=== PATIENT | female | born 1960 | race Caucasian/White ===

== ENCOUNTER 2017-11-06 07:21 | Outpatient (CLI) | payer OTHER ==
[2017-11-06] MEDS ORDERED: Iopamidol 370 76% 100 ML VIAL ONE (09:00)
--- NOTE | 2017-11-06 09:09 | CT ---
CT ABDOMEN AND PELVIS WITH CONTRAST: HISTORY: C18.6, malignant neoplasm of colon. Followup colon cancer. COMPARISON: CT abdomen and pelvis 04/08/17. FINDINGS: Lung bases are clear. No pericardial effusion. There is a small ventral hernia containing small bowel, the alimentary limb of the bypass. No dilated loops of large or small bowel. No adenopathy. The aortoiliac contour is normal. The liver, gallbladder, spleen, and pancreas are all unremarkable. No intrahepatic or extrahepatic biliary dilatation. Prior partial hepatectomy. The skeleton is unremarkable. IMPRESSION: No evidence for disease recurrence or metastatic disease. POS: [facility]
== END 2017-11-06 07:22 | disposition home or self-care (01) ==
LOC: SCSCT 07:21
PROVIDERS: ATTEND Internal Medicine Hematology & Oncology
DX: C18.6 Malignant neoplasm of descending colon (principal)
CPT/HCPCS: 74177

== ENCOUNTER 2018-06-11 07:16 | Outpatient (CLI) | payer OTHER ==
--- NOTE | 2018-06-11 10:09 | CT ---
CT ABDOMEN AND PELVIS WITH IV CONTRAST: Date: 06-11-18 History: Colon cancer. Comparison: 11-06-17 FINDINGS: Calcified granuloma is again seen at the left lung base. This is unchanged compared to a study in 201 6. No additional pulmonary nodule or mass is seen. There is minimal dependent bibasilar atelectasis. There are post-surgical changes related to resection of the lateral segment left hepatic lobe with ev idence of cholecystectomy. There is a linear area of enhancement again seen within the lateral aspect of the right hepatic lobe which is stable when compared to multiple prior studies, including studies dating back to 2016 and 2015 and may be related to vascular malformation in this region. No new hepa tic lesions are seen. Post-surgical changes of the stomach are present likely related to gastric bypass procedure. There is midline ventral abdominal hernia in the upper abdomen containing a loop of small bowel witho ut evidence of a bowel obstruction. However, this is a stable finding. The spleen, pancreas, bilateral adrenal glands, kidneys, and decompressed urinary bladder demonstrate a normal CT appearance. There is decreased attenuation of the endometrium which is more prominent than on prior exams. This c ould be related to patient's endometrium. Fluid dependent endometrial canal is a possibility which wo uld be abnormal in a post-menopausal female patient. Minimal vascular calcification seen in the abdominal aorta. There is no evidence of lymphadenopathy. No free fluid or fluid collection is seen in the abdomen or pelvis. No lytic or sclerotic osseous lesions are seen. IMPRESSION: 1. Decreased attenuation in the endometrial canal. While this is not well evaluated by CT examination , fluid within the endometrial canal cannot be entirely excluded. However, if this does represent flu id, this would be abnormal in a post-menopausal female patient. Pelvic ultrasound is suggested for fu rther evaluation. 2. No evidence of metastatic disease. 3. Ventral abdominal wall hernia containing a loop of small bowel without evidence of bowel obstructi on. 4. Post-surgical changes lateral segment left hepatic lobe, post-surgical changes related to gastric bypass procedure, and post-surgical changes involving the proximal sigmoid colon. POS: [facility]
== END 2018-06-11 07:17 | disposition home or self-care (01) ==
LOC: CT 07:16
PROVIDERS: ATTEND Surgery
DX: C18.9 Malignant neoplasm of colon, unspecified (principal); K43.9 Ventral hernia without obstruction or gangrene; Z98.890 Other specified postprocedural states
CPT/HCPCS: 74177

== ENCOUNTER 2018-06-15 10:57 | Outpatient (CLI) | payer OTHER ==
[2018-06-15 12:00] LABS: #Eosinphils 0.1 thou/uL (0.0-0.7); #Lymphocytes 1.7 thou/uL (1.20-3.40); #Monocytes 0.3 thou/uL (0.11-0.59); #Neutrophils 2.9 thou/uL (1.40-6.50); %Basophils 0.9 % (0.0-1.0); %Eosinophils 1.6 % (0.0-10.0); %Lymphocytes 33.2 % (21.0-51.0); %Monocytes 6.3 % (0.0-10.0); %Neutrophils 58.1 % (42.0-75.0); Hemoglobin 14.4 g/dL (12.0-16.0); Mean Corpuscular HGB CONC 33.4 g/dL (32.0-36.0); Mean Corpuscular Hemoglobin 30.5 pg (27.0-31.0); Mean Corpuscular Volume 91.2 fL (78.0-98.0); Mean Platelet Volume 7.3 fL (7.4-10.4); Platelet Count 260 thou/uL (130-400); RBC Distribution Width 12.4 % (11.5-14.5); Red Blood Cell (RBC) Count 4.74 mill/uL (4.20-5.40); White Blood Cell (WBC) Count 5.1 thou/uL (4.8-10.8)
[2018-06-15 12:25] LABS: Anion Gap 15 mmol/L (10-20); BUN (Urea Nitrogen) 13 mg/dL (9.8-20.1); Calc. Creatinine Clearance 0 mL/min (70-130); Calcium 9.6 mg/dL (7.8-10.44); Carbon Dioxide 26 mmol/L (22-29); Chloride 103 mmol/L (98-107); Estimated GFR-MDRD 68; Glucose 119 mg/dL (70-105); Potassium 4.7 mmol/L (3.5-5.1); Sodium 139 mmol/L (136-145)
--- NOTE | 2018-06-15 16:04 | EKG ---
Test Reason : Blood Pressure : / mmHG Vent. Rate : 053 BPM Atrial Rate : 053 BPM P-R Int : 142 ms QRS Dur : 092 ms QT Int : 466 ms P-R-T Axes : 057 079 055 degrees QTc Int : 437 ms Sinus bradycardia Otherwise normal ECG Confirmed by ROMIE BRICEÑO ([id number]) on 06/15/2018 4:04:16 PM Referred By: CARON Confirmed By:ROMIE BRICEÑO
== END 2018-06-15 10:58 | disposition home or self-care (01) ==
LOC: LABBT 10:57
PROVIDERS: ATTEND Surgery
DX: Z01.818 Encounter for other preprocedural examination (principal); K43.2 Incisional hernia without obstruction or gangrene
CPT/HCPCS: 80048; 85025; 93005; 93010

== ENCOUNTER 2018-06-16 05:46 | Day surgery (SDC) | payer OTHER ==
[2018-06-15 11:09] VITALS: BMI 33.1
[2018-06-16] MEDS ORDERED: CEFAZOLIN/Water 2 GM/20 ML SYRINGE ONE (06:09)
[2018-06-16] MEDS ORDERED: Fentanyl 250 MCG/5 ML VIAL ONE (06:44)
[2018-06-16] MEDS ORDERED: Midazolam HCl 2 mg/2 ml Vial ONE (06:44)
[2018-06-16] MEDS ORDERED: Bupivacaine/Epinephrine 0.25% 30 ML VIAL ONE (07:02)
[2018-06-16] MEDS ORDERED: Fentanyl 100 MCG/2 ML VIAL ONE ×2 (09:10→09:56)
[2018-06-16] MEDS ORDERED: ePHEDrine/0.9% NaCl/PF SYRINGE 50 mg/10 ml ONE (10:38)
[2018-06-16] MEDS ORDERED: PROPOFOL 200 MG/20 ML VIAL ONE (10:38)
[2018-06-16] MEDS ORDERED: Lidocaine 1% PF 5 ML VIAL ONE (10:38)
[2018-06-16] MEDS ORDERED: PHENYLEPHRINE-NS 100 MCG/ML 10 ML SYRINGE ONE (10:38)
[2018-06-16] MEDS ORDERED: Ondansetron HCl/PF 4 MG/2 ML Vial ONE (10:38)
[2018-06-16] MEDS ORDERED: Dexamethasone 20 MG/5 ML VIAL ONE (10:38)
[2018-06-16] MEDS ORDERED: Glycopyrrolate 0.2 MG/ML 5 ML SYRINGE ONE (10:38)
[2018-06-16] MEDS ORDERED: HYDROcodone/Acetaminophen 5/325 mg Tablet ONE (11:14)
--- NOTE | 2018-06-17 11:11 | OP ---
DATE OF PROCEDURE: 06/16/2018 PREOPERATIVE DIAGNOSIS: Incisional hernia. POSTOPERATIVE DIAGNOSES: Incisional hernia. PROCEDURE: [facility] laparoscopic incisional hernia repair with mesh, Ventralex ST 8 cm. SURGEON: Nash Henderson M.D. ANESTHESIA: General. ESTIMATED BLOOD LOSS: Minimal. COMPLICATIONS: None. SPECIMEN: None. TECHNIQUE: The patient was taken to the operating room and placed supine on the table. After genera l anesthetic was obtained, a Cardenas was placed. The abdomen is prepped and draped in a sterile fashio n. Curved incision made below the umbilicus, cautery used to cut dissect down to and score the fasci a. Abdominal cavity entered bluntly using a Cindi clamp. Holding stitch of PDS placed on each side of the fascia. An 11 mm balloon applied, medical trocar is was placed. Balloon was inflated and pul led up against the posterior abdominal wall, high flow pneumoperitoneum was obtained. Left and right abdominal 8 mm robot trocars were placed. All ports were docked to the robot. Surgeon goes to the console. The patient had some adhesions to her posterior abdominal wall that are taken down exposing the upper abdominal hernia defect. The hernia defect is able to be closed using a #1 running V-Loc suture. This closes the fascial defect under minimal tension, [address] mesh is then cut lab eled and placed in the abdominal cavity. The nonadherent surface is left down against the abdominal structures. This mesh is held in place to the posterior abdominal wall using the needle on V-Loc, th e mesh is affixed to the posterior peritoneum and fascia using a running 2-0 Vicryl suture. There is good coverage of the closed hernia defect with the mesh. No injury to any intra-abdominal structure s. All needles were removed from the abdomen and accounted for. All port sites are infiltrated usin g local anesthetic. All ports are removed under camera visualization. Pneumoperitoneum was let down . The PDS was used to close the fascial defect below the umbilicus. All incisions were irrigated an d closed using 4-0 Monocryl and Dermabond. The patient was en route to recovery in stable condition. All instrument counts, needle counts, lap counts are correct.
== END 2018-06-16 11:28 | disposition home or self-care (01) ==
LOC: SDC 05:46
PROVIDERS: ATTEND Surgery
PROC: 0WUF4JZ Supplement Abdominal Wall with Synthetic Substitute, Percutaneous Endoscopic Approach (ICD-10-PCS; principal; 2018-06-16)
DX: K43.2 Incisional hernia without obstruction or gangrene (principal); I10 Essential (primary) hypertension; C18.9 Malignant neoplasm of colon, unspecified; Z79.82 Long term (current) use of aspirin; Z79.899 Other long term (current) drug therapy; Z91.041 Radiographic dye allergy status
CPT/HCPCS: 80048; 85025; 93005; 93010; 96374; C1781; J1100; J2001; J2250; J2405; J2704; J3010

== ENCOUNTER 2019-06-17 07:24 | Outpatient (CLI) | payer OTHER ==
--- NOTE | 2019-06-17 09:33 | CT ---
EXAM: CT ABDOMEN AND PELVIS HISTORY: Colon cancer. COMPARISON: 06/11/2018, 11/06/2017. Procedure: Multiple contiguous axial images were obtained and a CT of the abdomen and pelvis with IV contrast. C oronal reformats were performed. FINDINGS: Lower Chest: Dependent atelectatic changes. No lung nodules. Vessels: Normal caliber aorta. No periaortic fat stranding . Heart: Normal heart size. No significant pericardial fluid. Abdomen: Portal vein:Patent Gallbladder: No calcified gallstones. Normal caliber wall. Liver: Complete resection of the left hepatic lobe Pancreas: Atrophy. No obvious pancreatic masses. Spleen: within normal limits. Adrenals: within normal limits. Kidneys: Symmetric enhancement of the kidneys. Bilaterally no obstructive uropathy. Peritoneum: No ascites or free air, no fluid collection. Bowel: There is evidence previous bariatric surgical change. Multiple upper normal diameter small bow el loops. Possible bowel wall thickening involving a segment of small bowel in the left hemiabdomen which is presumed to be a segment of jejunum. No evidence of high-grade obstruction as contrast opaci fies the ileocecal junction. The distal ileal loops are decompressed. There does appear to be dilatation of small bowel at a jejunal jejunal anastomosis. Findings are similar to an examination fr om December of 2014 but are more pronounced when compared to examination from October of 2017. There is evidence of an anastomotic suture chain involving the mid descending colon. Mesentery and Retroperitoneum: No enlarged mesenteric or retroperitoneal lymph nodes. Abdominal Wall: within normal limits. Pelvis: Reproductive Organs: Uterus and adnexal structures are unremarkable Pelvis: within normal limits. Bladder: within normal limits. Bones: within normal limits. IMPRESSION: 1. Bowel wall thickening and bowel dilatation involving the jejunal loops. There may be partial obstr uctive process. No evidence of high-grade obstruction as contrast does opacify the distal small bowel loops and right hemicolon. 2. Evidence of previous bariatric surgery. 3. Anastomosis involving the descending colon. No evidence of residual mass or obstruction. Transcribed Date/Time: 06/17/2019 9:42 AM
[2019-06-17] MEDS ORDERED: Iopamidol 370 76% 100 ML VIAL ONE (15:19)
== END 2019-06-17 07:25 | disposition home or self-care (01) ==
LOC: CT 07:24
PROVIDERS: ATTEND Internal Medicine Hematology & Oncology
DX: C18.9 Malignant neoplasm of colon, unspecified (principal); D70.9 Neutropenia, unspecified; Z98.890 Other specified postprocedural states
CPT/HCPCS: 74177; 80048; 82378; 85027; Q9967

== ENCOUNTER 2020-06-16 08:19 | Outpatient (CLI) | payer OTHER ==
--- NOTE | 2020-06-16 09:48 | CT ---
CT OF THE ABDOMEN AND PELVIS WITH IV CONTRAST INDICATION: Follow-up colon cancer COMPARISON: Prior CT the abdomen and pelvis dated June 17, 2019, June 11, 2018 and October 02. FINDINGS: ABDOMEN: Lung bases: Clear Liver: The postsurgical change consistent with a partial left hepatectomy is stable. The small flash filling lesion involving the right hepatic dome is stable since 2016 likely reflecting a small flash filling hemangioma. Gallbladder: Normal appearing. Pancreas: Normal. Adrenal glands: Normal. Spleen: Normal. Kidneys and ureters: Normal. No hydronephrosis. Vasculature: There are mild vascular calcifications seen involving the visualized vasculature. Lymph nodes:No lymphadenopathy. Free fluid in abdomen:No free fluid is evident. PELVIS: Small and large bowel: There is postsurgical change of a prior gastric bypass. There is a prominent a mount of retained stool within the colon. There is postprocedural change of a partial colectomy and primary anastomosis of the descending colon and sigmoid colon. Appendix:Not definitely seen Bladder: Decompressed Rectal and perirectal soft tissues:Normal. Reproductive structures: Not definitely seen, presumed to be surgically absent. Free fluid in pelvis: No free fluid is evident. Lymphadenopathy pelvis: No lymphadenopathy is evident. Osseous structures: No acute osseous abnormality. No destructive osteolytic or osteoblastic lesion i s identified. There is scattered degenerative and osteoarthritic changes. Soft tissues:Normal. IMPRESSION: 1. No evidence to suggest recurrent disease or metastatic disease within the abdomen or pelvis. 2. Stable postprocedural change of a left hepatectomy and hysterectomy.
== END 2020-06-16 08:20 | disposition home or self-care (01) ==
LOC: CT 08:19
PROVIDERS: ATTEND Internal Medicine Hematology & Oncology
DX: C18.6 Malignant neoplasm of descending colon (principal); Z90.710 Acquired absence of both cervix and uterus; Z90.49 Acquired absence of other specified parts of digestive tract
CPT/HCPCS: 74177; 82565

== ENCOUNTER 2021-06-05 07:47 | Outpatient (CLI) | payer OTHER ==
[2021-06-05] MEDS ORDERED: Iopamidol 370 76% 50 ML VIAL FS ONE (09:14)
[2021-06-05] MEDS ORDERED: Iopamidol 370 76% 100 ML VIAL ONE (09:14)
== END 2021-06-05 07:48 | disposition home or self-care (01) ==
LOC: CT 07:47
PROVIDERS: ATTEND Internal Medicine Hematology & Oncology
DX: C18.9 Malignant neoplasm of colon, unspecified (principal)
CPT/HCPCS: 74177; 82565; Q9967

== ENCOUNTER 2022-02-13 08:35 | Outpatient (CLI) | payer BC | END 2022-02-13 08:36 | disposition home or self-care (01) | LOC: MRI 08:35 | PROVIDERS: ATTEND Orthopaedic Surgery | DX: M23.321 Other meniscus derangements, posterior horn of medial meniscus, right knee (principal); M84.451A Pathological fracture, right femur, initial encounter for fracture; M94.8X6 Other specified disorders of cartilage, lower leg ==

== ENCOUNTER 2022-06-04 09:27 | Outpatient (CLI) | payer BC ==
[2022-06-04] MEDS ORDERED: Iopamidol 370 76% 100 ML VIAL ONE (14:31)
== END 2022-06-04 09:28 | disposition home or self-care (01) ==
LOC: CT 09:27
PROVIDERS: ATTEND Internal Medicine Hematology & Oncology
DX: C18.9 Malignant neoplasm of colon, unspecified (principal)
CPT/HCPCS: 74177; Q9967

== ENCOUNTER 2023-05-21 11:30 | Outpatient (CLI) | payer BC | END 2023-05-21 11:31 | disposition home or self-care (01) | LOC: BICMAMMO 11:30 | PROVIDERS: ATTEND Family Medicine | DX: Z12.31 Encounter for screening mammogram for malignant neoplasm of breast (principal); Z80.3 Family history of malignant neoplasm of breast; Z85.038 Personal history of other malignant neoplasm of large intestine | CPT/HCPCS: 77063; 77067 ==

== ENCOUNTER 2023-06-03 09:24 | Outpatient (CLI) | payer BC ==
[2023-06-03] MEDS ORDERED: Iopamidol 370 76% 100 ML VIAL ONE (09:36)
== END 2023-06-03 09:25 | disposition home or self-care (01) ==
LOC: CT 09:24
PROVIDERS: ATTEND Internal Medicine Hematology & Oncology
DX: C18.9 Malignant neoplasm of colon, unspecified (principal); D70.9 Neutropenia, unspecified; T82.818D Embolism due to vascular prosthetic devices, implants and grafts, subsequent encounter; R11.2 Nausea with vomiting, unspecified; I82.409 Acute embolism and thrombosis of unspecified deep veins of unspecified lower extremity
CPT/HCPCS: 74177; Q9967

== ENCOUNTER 2025-06-03 08:25 | Outpatient (CLI) | payer BC ==
[2025-06-03 08:52] LABS: Estimated GFR - POC 82.0
[2025-06-03] MEDS ORDERED: Iopamidol 370 76% 100 ML VIAL ONE (12:15)
== END 2025-06-03 08:26 | disposition home or self-care (01) ==
LOC: CT 08:25
PROVIDERS: ATTEND Internal Medicine Hematology & Oncology
DX: C18.6 Malignant neoplasm of descending colon (principal)
CPT/HCPCS: 36415; 74177; 82565; Q9967